=== PATIENT | male | born 1980 | race African-American/Black ===

== ENCOUNTER 2019-11-19 15:00 | Emergency (ER) | payer OTHER ==
[~2019-11-19] VITALS: Ht 180.3 cm; Wt 81.6 kg
[2019-11-19] MEDS ORDERED: NAPROSYN500 MG PO (16:37)
== END 2019-11-19 16:40 | disposition home or self-care (01) ==
LOC: ED 15:00
DX: M25.572 Pain in left ankle and joints of left foot (principal); X58.XXXA Exposure to other specified factors, initial encounter; Y93.89 Activity, other specified; Y92.89 Other specified places as the place of occurrence of the external cause; Y99.0 Civilian activity done for income or pay